=== PATIENT | male | born 1965 | race Caucasian/White ===

== ENCOUNTER 2017-01-26 10:01 | Day surgery (SDC) | payer BC ==
[~2017-01-26 10:01] MED LIST: Buffered Lidocaine 0.9% SYRIN* 5 ML/SYR SYRINGE INTRADERM ONE
[2017-01-26] MEDS ORDERED: ceFAZolin 2 GM PREMIX(*) 2 GM/50 ML BAG IVPB ONE (10:08)
[2017-01-26] MEDS ORDERED: Buffered Lidocaine 0.9% SYRIN* 5 ML/SYR SYRINGE ONE (10:09)
[2017-01-26] MEDS ORDERED: fentaNYL* 50 MCG/ML 2 ML VIAL (100 MCG VIAL) ONE (10:40)
[2017-01-26] MEDS ORDERED: Midazolam* 1 MG/ML 2 ML VIAL (2 MG) ONE (10:41)
[2017-01-26] MEDS ORDERED: Bupivacaine 0.25% EPI 200,000* 30 ML SDV ONE (10:42)
[2017-01-26] MEDS ORDERED: Bupivacaine 0.25% SDV* 30 ML ONE (10:42)
[2017-01-26] MEDS ORDERED: Dexamethasone IV* 4 MG/ML 1 ML (4 MG) ONE (10:59)
[2017-01-26] MEDS ORDERED: Ketorolac INJ* 30 MG/ML 1 ML VIAL ONE (11:30)
[2017-01-26] MEDS ORDERED: methylPREDNISolone ACETATE 80* 80 MG/ML 1 ML VIAL ONE (11:36)
[2017-01-26] MEDS ORDERED: Ondansetron INJ* 2 MG/ML VIAL ONE (11:37)
[2017-01-26] MEDS ORDERED: fentaNYL* 50 MCG/ML 2 ML VIAL (100 MCG VIAL) IV PRN (11:50)
[2017-01-26] MEDS ORDERED: HYDROcodone/ACETAMIN 5-325 MG* 1 TAB PO PRN (11:50)
[2017-01-26] MEDS ORDERED: oxyCODONE TAB* 5 MG TAB PO PRN (11:50)
[2017-01-26] MEDS ORDERED: HYDROmorphone* 1 MG/ML 1 ML SYR IV PRN (11:50)
[2017-01-26] MEDS ORDERED: Ondansetron INJ* 2 MG/ML VIAL IV PRN (11:50)
[2017-01-26] MEDS ORDERED: DiMENhydriNATE IV* 50 MG/ML VIAL IV PUSH PRN (11:50)
[2017-01-26] MEDS ORDERED: oxyCODONE/Acetamin 5/325 MG* TAB ONE (12:03)
[2017-01-26 12:23] VITALS: BP 116/71
--- NOTE | 2017-01-27 05:19 | OP ---
DATE OF OPERATION: 01/26/17 - [facility] DATE OF : 61 SURGEON: Lissa Grier MD ENVIRONMENTAL MONITORING TECHNICIAN: None. ANESTHESIOLOGIST: Elder Denton MD ANESTHESIA: General. PRE-OP DIAGNOSIS: Right knee ankylosis. POST-OP DIAGNOSES: Right knee ankylosis and medial meniscus tear. OPERATIVE PROCEDURE: Right knee arthroscopy with manipulation under anesthesia , lysis of adhesions which was medially along the scar as well as partial medial meniscectomy. INDICATIONS: Anders Ayala is a 51-year-old male, who underwent previous right knee medial femoral condyle BioCartilage. He was doing well, but he was having a lot of anteromedially based pain and difficulty with stairs. It was thought that the medial scar was causing this pain. After an extensive discussion and failing conservative management, he has elected to proceed with arthroscopy with lysis of adhesions. Risks and benefits were discussed at length and included but are not limited to bleeding, infection, damage to nerves , vessels, surrounding structures, wound nonhealing, persistent pain, need for further surgery, risk of anesthesia, risk of DVT, scarring, stiffness, persistent pain, incomplete relief of symptoms, risk of anesthesia. He did have a previous DVT after his previous surgery and we will place him on Lovenox postoperatively to prevent DVT after this surgery. COMPLICATIONS: None. ESTIMATED BLOOD LOSS: Minimal. DESCRIPTION OF PROCEDURE: The patient was greeted in the preoperative area by the attending surgeon. Correct extremity was marked and consent was confirmed. The patient was then brought back to the operating suite, where he was placed in supine position on the operating table, then underwent general anesthesia with LMA intubation, after which a nonsterile tourniquet was placed high on the right leg. The lateral post was positioned. After a miniature surgical pause, the right knee was intra-articularly injected with 0.25% Marcaine with epi. The right leg was then prepped and draped in the usual sterile fashion beginning with chlorhexidine soap and alcohol wipe and a final prep with ChloraPrep. After appropriate surgical pause, indicating side, site, procedure, administration of antibiotics, the anterolateral portal was made sharply with an 11-blade. Scope was introduced into the joint. There was abundant scar anteriorly, particular medially. An anteromedial portal was then made using a needle for localization. The electrocautery device was used to remove the abundant scar that was present all around the anteromedial aspect of the patella. As the scar was slowly released, there was evidence of soft tissue that were able to soften, allow better mobilization of the patella. This also helped remove a lot of the new plica that was forming from the excessive scar tissue. Electrocautery was also used to maintain hemostasis at all times. The ACL and PCL were intact. The patella had grade 0 to 1 changes. The trochlea had grade 0 to 1 changes, except for a central ridge, which had grade 2 to 3 changes with no unstable flaps. The medial and lateral gutters were examined and found to be without any loose debris. The scope was brought into the medial compartment and medial femoral condyle had the previous BioCartilage lesion, which had healed over quite well and had appeared to be well- attached to the medial meniscus; however, had appeared to be tear that had an unstable flap, which was debrided back using the antonio and biters. The tibial plateau had grade 1 changes. The lateral compartment was examined and had grade 0 to 1 changes in the femur and the tibia. The lateral meniscus was intact. Once the partial meniscectomy and lysis of adhesions were done, all fluid and debris were removed from the joint. The knee was then intra-articularly injected with 0.25% Marcaine with 80 mg of Depo-Medrol. The portals were closed with nylon. Sterile dressings were applied. He was awoken from anesthesia and transferred to the PACU in stable condition. POSTOPERATIVE PLAN: He will be weightbearing as tolerated. He will be discharged on pain medications as well as Lovenox. DVT prophylaxis was considered. He did have a previous DVT with this and that is why we will plan to send him on Lovenox. I will see the patient back in 10 to 14 days. [id number]/[facility] #: [id number] AI
== END 2017-01-26 12:32 | disposition home or self-care (01) ==
LOC: OREAST 10:01
PROVIDERS: ATTEND Orthopaedic Surgery
DX: M24.661 Ankylosis, right knee (principal); M23.203 Derangement of unspecified medial meniscus due to old tear or injury, right knee; Z86.718 Personal history of other venous thrombosis and embolism
CPT/HCPCS: A9270-GY; J0690; J1040; J1100; J1885; J2250; J2405; J3010

== ENCOUNTER 2017-02-10 15:03 | Inpatient (IN) | payer BC ==
[~2017-02-10 15:03] MED LIST changes: +Famotidine IV* 10 MG/ML 2 ML (20 mg) IV ONE
[2017-02-10] MEDS ORDERED: Famotidine IV* 10 MG/ML 2 ML (20 mg) ONE (15:46)
[2017-02-10] MEDS ORDERED: oxyCODONE/Acetamin 5/325 MG* TAB PO PRN ×2 (15:48→19:32)
[2017-02-10] MEDS ORDERED: oxyCODONE TAB* 5 MG TAB PO PRN (15:48)
[2017-02-10] MEDS ORDERED: Acetaminophen TAB* 325 MG PO PRN (15:48)
[2017-02-10] MEDS ORDERED: Ondansetron TAB* 4 MG PO PRN (15:48)
[2017-02-10] MEDS ORDERED: Morphine INJ* 2 MG/ML 1 ML SYRINGE IV PRN (15:48)
[2017-02-10] MEDS ORDERED: diPHENhydraMINE IV* 50 MG/ML 1 ml VIAL (BENADRYL) IV PRN (15:48)
[2017-02-10] MEDS ORDERED: Vancomycin(*) 1,000 MG in NS 0.9% 250 ML* 250 ML IVPB ONE (17:00)
[2017-02-10 17:04] LABS: Hematocrit 42 % (42-52); Hemoglobin 14.3 g/dl (14.0-18.0); Mean Corpuscular HGB Conc 34 g/dl (31-36); Mean Corpuscular Hemoglobin 30 pg (27-31); Mean Corpuscular Volume 89 fL (80-94); Mean Platelet Volume 8 um3 (7.4-10.4); Red Blood Count 4.71 10^6/ul (4.0-5.4); Red Cell Distribution Width 13 % (10.5-15); White Blood Count 6.3 10^3/ul (3.5-10.8)
--- NOTE | 2017-02-10 17:33 | HP ---
HISTORY AND PHYSICAL: DATE OF ADMISSION: 02/10/17 ATTENDING PHYSICIAN: Lissa Grier MD. CHIEF COMPLAINT: Right knee pain, status post recent knee arthroscopy. HISTORY OF PRESENT ILLNESS: Andres Ayala is a 51-year-old male who underwent a recent right knee arthroscopic lysis of adhesion on 01/26/17. He was doing well and was seen at a postop visit on 02/06/17, which was 1 week and 4 days postop. He was doing okay. He did notice that he had an occasional ache. He stated that the medial portal was somewhat tender for him, but he did not notice any kind of swelling, no drainage, but on Thursday, he noticed some drainage. Since that time, he has had an increased drainage coming out of the portal. Even though most of the portal has healed, there is a small pinhole. He has not had any specific fevers or chills. He did notice increased pain with weightbearing yesterday. He did not go to the ER. He came to the office today, at which point I aspirated him because there was concern based on the fluid that was coming out. He denies any fevers or chills. There is no erythema or warmth, but he does have some increased knee pain. He is having difficulty going up stairs but not down stairs. PAST MEDICAL HISTORY: Significant for DVT x1. PAST SURGICAL HISTORY: Appendectomy, surgery on his right foot x2 in 2000 and 2004, right knee arthroscopy with Dr. White in 2014 for a partial meniscectomy, then a recent scope in May 2016 where we did an open BioCartilage with arthroscopic portion, and then the recent arthroscopic lysis of adhesion approximately 2 weeks ago. MEDICATIONS: I placed him on Bactrim today, which he has not started. ALLERGIES: None. FAMILY HISTORY: Significant for high blood pressure. SOCIAL HISTORY: 51 years old. Lives with his spouse. He is a teacher. He denies tobacco or alcohol. He denies any illicit drugs. REVIEW OF SYSTEMS: A 14-point review of systems is significant only for the above complaint, and difficulty with weightbearing, some loss of motion. No fevers or chills. Otherwise, the remainder of the systems are negative. PHYSICAL EXAMINATION GENERAL: He is in no acute distress. He is well developed, well nourished. He is alert and oriented x3. He has pleasant mood, normal affect. HEENT: EOMI. CHEST: Clear to auscultation. HEART: Regular rate and rhythm. ABDOMEN: Soft and nontender. EXTREMITIES: Examination of the right knee demonstrates the medial portal has a small pinhole. There is a yellowish fluid draining. There is a mild effusion in the knee itself. The lateral portal is fully healed. There is no erythema or warmth. He is not specifically tender to palpation, not specifically tender about either joint line. Range of motion is from 10 degrees to about 100 degrees. His calves are soft and nontender. He is sensate to light touch grossly distally with 2+ DP pulse. ASSESSMENT AND PLAN: I aspirated his knee in the clinic and I sent it for stat Gram stain and culture. The Gram stain has come back with 51,000 white blood cells. He has had 2 previous surgeries, and although his knee is not red , he does have pain with weightbearing and I am concerned he has a septic joint. We will plan for right knee arthroscopy and lavage with intraopcultures , and he will likely be admitted for a day or two postoperatively to find out what organism is growing. We consulted Infectious Diseases and I will continue to monitor the patient. The gram stain grew out MRSA. [id number]/[facility] #: [id number] AI
[2017-02-10] MEDS ORDERED: Bupivacaine 0.25% EPI 200,000* 30 ML SDV ONE (18:58)
[2017-02-10] MEDS ORDERED: Vancomycin(*) 0 MG in NS 0.9% 250 ML* 250 ML IVPB SCH (19:00)
[2017-02-10] MEDS ORDERED: fentaNYL* 50 MCG/ML 2 ML VIAL (100 MCG VIAL) ONE (19:01)
[2017-02-10] MEDS ORDERED: Lidocaine 2% PF * 5 ML VIAL ONE (19:01)
[2017-02-10] MEDS ORDERED: Propofol* 10 MG/ML 20 ML BTL IV PUSH ONE (19:01)
[2017-02-10 19:02] LABS: Erythrocyte Sed Rate 13 mm/Hr (0-20)
[2017-02-10] MEDS ORDERED: Ketorolac INJ* 30 MG/ML 1 ML VIAL ONE (19:11)
[2017-02-10] MEDS ORDERED: Ondansetron INJ* 2 MG/ML VIAL ONE (19:18)
[2017-02-10] MEDS ORDERED: HYDROcodone/ACETAMIN 5-325 MG* 1 TAB PO PRN (19:32)
[2017-02-10] MEDS ORDERED: PROCHLORPERAZINE INJ 5 MG/ML 2 ML VIAL IV PRN (19:32)
[2017-02-10] MEDS ORDERED: fentaNYL* 50 MCG/ML 2 ML VIAL (100 MCG VIAL) IV PRN (19:32)
[2017-02-11] MEDS: Docusate CAP* 100 MG PO SCH ×3 (01:44→20:28)
[2017-02-11 04:12] LABS: Hematocrit 40 % (42-52); Hemoglobin 13.6 g/dl (14.0-18.0)
[2017-02-11 04:24] LABS: BUN/Creatinine Ratio 13.5 (8-20); Calcium 8.7 mg/dL (8.6-10.3); EGFR Non-African American 89.4 (>60); Potassium 3.7 mmol/L (3.5-5.0)
[2017-02-11] MEDS ORDERED: Vancomycin per Pharmacy* NOTE FOLLOW UP PRN (04:48)
[2017-02-11] MEDS: Vancomycin(*) 1,250 MG in NS 0.9% 250 ML* 250 ML IVPB SCH ×3 (05:00→21:24)
--- NOTE | 2017-02-11 09:28 | OP ---
CC: PCP OPERATIVE REPORT: DATE OF OPERATION: 02/10/17 DATE OF : 61 SURGEON: Lissa Grier MD EMERGENCY TELECOMMUNICATIONS DISPATCHER: None available. ANESTHESIOLOGIST: Espinoza Han MD ANESTHESIA: General. PRE-OP DIAGNOSIS: Right knee septic arthritis. POST-OP DIAGNOSIS: Right knee septic arthritis. OPERATIVE PROCEDURE: Right knee arthroscopy with debridement and lavage with 12 L of saline. INDICATIONS: Andres Ayala is a 51-year-old gentleman who underwent recent lysis of adhesions an d a debridement approximately 2 weeks and 1 day ago. He was doing well at his postop visit and then over the weekend, he started to notice drainage through the medial wound. He subsequently started to have more drainage and started to have pain that began yesterday. He had progressive pain with w eightbearing, but he had an appointment scheduled to see me in the office today. At that visit, irish van was concern for infection. His knee was aspirated, which came back as positive for MRSA as well a s 51,000 white blood cells on the aspiration. After extensive discussion of risks and benefits of op erative versus nonoperative treatment, he has elected to proceed with surgery. This was done emerge ntly. He did labs. CBC, ESR, CRP were drawn prior to surgery and now because the surgery was being delayed due to other cases, vancomycin was started prior to going into surgery; therefore, no aspir ation was obtained at the time of surgery. Risks include but are not limited to bleeding, infection , damage to nerves, vessels, surrounding structures, the wound not healing, persistent pain, need fo r further surgery, risks of anesthesia, scarring, stiffness, persistent pain, need for further surge ry. COMPLICATIONS: None. ESTIMATED BLOOD LOSS: Minimal. DESCRIPTION OF PROCEDURE: The patient was greeted in the preoperative area by the attending surgeon . Correct extremity was marked and consent was confirmed. The patient was brought back to the oper ating suite where he was placed in supine position on the operating table. He then underwent genera l anesthesia with LMA intubation, after which a nonsterile tourniquet was placed high on the proxima l thigh. The lateral post was positioned. The dressings were removed. The right leg was then prep ped and draped in the usual sterile fashion beginning with a pre- scrub with chlorhexidine soap, scr ub, and alcohol wipe, and then a final prep with Betadine scrub and paint. After appropriate surgical pause indicating side, site, procedure, administration of antibiotics, th e anterolateral portal was made sharply via an 11 blade. The scope was introduced into the joint. The previous medial portal was opened as well. The scope was brought into the joint. The joint was examined. There was no obvious large phlegmons, but there was some cloudy fluid. The shaver was b rought into the medial portal and a small debridement was done. Any suspicious looking tissue was d ebrided, but there was no obvious biofilms or anything present. The scope and the shaver were taken throughout all portions including the medial and lateral gutters, the suprapatellar pouch, and thor oughly lavaged. The patellofemoral joint had no changes to the cartilage. The medial femoral condy le still had the previous patch that was still present. There was no evidence of it failing. The m eniscus did not have any obvious changes or wear. The ACL and PCL were intact. The lateral compart ment was unchanged as well from the previous exam 2 weeks ago. The first 6 L were passed through th e knee and then a curette was used to debride the medial compartment, any purulent tissue or anythin g was used was done. This was then thoroughly irrigated. Both portals were thoroughly irrigated an d then the remaining 6 L were passed through the knee joint, again with care to try to access every aspect of the joint. All fluid and debris were removed from the knee. The portals were closed with 3-0 nylon in interrupted fashion. The portals were injected with 0.25% Marcaine plain, portals onl y. Sterile dressings were applied. The patient was awoken from anesthesia and transferred to the P ACU in stable condition. POSTOPERATIVE PLAN: He will be weightbearing as tolerated. Range of motion as tolerated. He will be placed on IV vancomycin. Infectious Diseases was consulted to see him in the morning. He will l ikely be discharged with a PICC line as he does have MRSA based on the aspirate. I will continue to follow the patient in the hospital and potentially if he has increased symptoms or pain, he may nee d another washout in about 48 to 72 hours. [id number]/[facility] #: [id number]
--- NOTE | 2017-02-11 11:16 | PN ---
Progress Note - Progress Note SOAP: Subjective: POD#1 from R knee arthroscopic I and D for septic joint. Feeling well. No pain. No fevers or chills. Walking laps around the floor. Objective: Temp Pulse Resp BP Pulse Ox 98.5 F 58 16 112/67 97 02/11/ 08:07 02/11/17 08:07 02/11/17 08:07 02/11/17 08:07 02/11/17 08:[address]. Right knee able to flex/ext from 5-110 degrees ( hindered by dressings). Calf soft, nontender. SILT grossly distally. 2+ PT pulse Laboratory Results - last 24 hr 02/10/02/11/02/11/17 16:45 04:00 04:00 WBC 6.3 RBC 4.71 Hgb 14.3 13.6 L Hct 42 40 L MCV 89 MCH 30 MCHC 34 RDW 13 Plt Count 189 MPV 8 Neut % (Auto) 64.8 Lymph % (Auto) 25.3 [place] % (Auto) 7.7 Eos % (Auto) 1.7 Baso % (Auto) 0.5 Absolute Neuts (auto) 4.1 Absolute Lymphs (auto) 1.6 Absolute Monos (auto) 0.5 Absolute Eos (auto) 0.1 Absolute Basos (auto) 0 Absolute Nucleated RBC 0 Nucleated RBC % 0 ESR 13 Sodium 138 Potassium 3.7 Chloride 106 Carbon Dioxide 27 Anion Gap 5 BUN 12 Creatinine 0.89 Est GFR ( Amer) 115.0 Est GFR (Non-Af Amer) 89.4 BUN/Creatinine Ratio 13.5 Glucose 86 Calcium 8.7 Assessment: POD#1 from I and D for right knee septic joint Plan: WBAT dressing change tomorrow. if increased pain, swelling, erythema then would consider repeat scope will continue to follow labs Dr Monroy consulted Likely picc line with IV vanco. will discharge potentially tomorrow or day after. dvt ppx
--- NOTE | 2017-02-11 12:38 | CONS ---
CONSULTATION REPORT: DATE OF CONSULT: 02/11/17 REQUESTING PHYSICIAN: Dr. Grier. CONSULTING SERVICE: Infectious Disease. REASON FOR CONSULT: Right knee infection. IMPRESSION: 1. Septic right knee; status post arthroscopic incision, debridement, and aspiration shows 50,000 white cells with Gram stain showed 4+ pus, no organisms , PCR was Staphylococcus aureus and methicillin-resistant Staphylococcus aureus positive. Nothing growing on the culture yet. 2. Status post right knee arthroscopy and partial medial meniscectomy on . RECOMMENDATION: Continue vancomycin, goal trough 15 to 20, this is likely a MRSA. There are an occasional false positive on the MRSA part of it, so it would make sense to wait for the culture and sensitivity to ensure it is MRSA. Assuming he is ready to go before the information is available, we can follow up with the cultures as an outpatient, change the antibiotics as needed. However, through a PICC line, he will have 4 weeks of IV antibiotics with repeat CBC, CMP, and CRP. HISTORY OF PRESENT ILLNESS: A 51-year-old male who had a right knee arthroscopy on 01/26/17 was doing well initially and then started to develop some drainage, which was yellowish from one of the ports. He developed knee stiffness and pain. He had no fevers or chills. He saw Dr. Grier, who noted an effusion. She aspirated his knee yesterday. There were 51,000 white blood cells, 80% neutrophils, no crystals, Gram stain as noted above. He was admitted last night, started on vancomycin, he had arthroscopic incision and debridement. I discussed the case with her this morning. PAST MEDICAL HISTORY: 1. Status post right knee arthroscopy in January 2017. 2. Status post appendectomy. 3. Status post right foot surgery in 2000 and 2004. 4. Status post right knee arthroscopy in 2014. 5. DVT. MEDICATIONS: 1. Tylenol. 2. Enoxaparin. 3. Vancomycin 1250 mg IV every 8 hours. ALLERGIES: No known drug allergies. FAMILY HISTORY: Hypertension. SOCIAL HISTORY: He lives in [place]; he is a mathematics teacher. REVIEW OF SYSTEMS: All negative to full review of systems except as noted above. PHYSICAL EXAMINATION: Vital Signs: Temperature is 37, heart rate 58, respiratory rate 16, blood pressure 112/67, O2 sat 97% on room air. In general , he is awake, not distressed. Neurologic: He is oriented x3. Follows all commands. HEENT: There is no conjunctival hemorrhage. Oropharynx without lesions. Neck is supple without nuchal rigidity. Heart is regular rate and rhythm without murmurs, rubs, or gallops. Lungs are clear to auscultation bilaterally. Abdomen is soft, nontender, nondistended. Bowel sounds present. Skin: There is no rash or splinter hemorrhages. Musculoskeletal: No joint synovitis. His right knee is wrapped with the cryo device. He does have decreased flexion and extension. Sensation is intact to light touch in right lower leg. LABORATORY DATA: White blood cell count is 6, hemoglobin 14, platelets 189. Creatinine is 0.9. Please see impressions and recommendations as outlined above, which I have discussed with Dr. Grier. Thanks for asking me to see Mr. Ayala in consultation. [id number]/[facility] #: [id number] MTDD
[2017-02-11] MEDS: Enoxaparin(*) 40 MG/0.4 ML SYR SUBCUT SCH (16:41)
[2017-02-11] MEDS ORDERED: Vancomycin Trough Check NOTE FOLLOW UP ONE (21:00)
[2017-02-12] MEDS: Vancomycin(*) 1,250 MG in NS 0.9% 250 ML* 250 ML IVPB SCH ×3 (04:59→21:34)
[2017-02-12 06:33] LABS: Hematocrit 40 % (42-52); Hemoglobin 13.7 g/dl (14.0-18.0)
[2017-02-12] MEDS: Docusate CAP* 100 MG PO SCH ×2 (08:29→21:35)
--- NOTE | 2017-02-12 09:57 | PN ---
Progress Note - Progress Note Note: Patient seen at bedside, ready to go outside for fresh air via WC. Reported by patient that Dr. Grier was in to see him this am and has made him NPO for repeat washout of the Right knee this afternoon. Patient in agreement to proceed.
--- NOTE | 2017-02-12 11:10 | PN ---
Progress Note - Progress Note SOAP: Subjective: DOS: 02/12/17 CC: knee infection HPI: 51 year old man with right knee arthroscopy now septic knee. Decreased motion today, Dr Grier plans for another I&D tonight. No fever, rash, or diarrhea. Objective: [] Vital Signs Temp 36.6 C 02/12/17 07:16 Pulse 66 02/12/17 07:16 Resp 16 02/12/17 07:41 BP 111/69 02/12/17 07:16 Pulse Ox 98 02/12/17 07:16 Intake & Output 02/11/17 02/12/17 02/12/17 18:59 06:59 18:59 Intake Total 1863 1755 675 Output Total 1200 400 Balance 663 1355 675 Intake: IV Fluids 140 LR 140 IVPB 1143 535 ABX - VANCOMYCIN 561 LR 582 535 Oral 720 1755 Output: Urine 1200 400 Other: Estimated Void Medium # Bowel Movements 0 # Voids 3 Gen:Awake, no distress HEENT:PERRL, MMM Neck:supple Heart:RRR no murmur Lungs:CTA BL Abd:+BS NTND soft Skin: no rash MSK: no spine tenderness, right knee edema Laboratory Results - last 24 hr 02/11/17 02/12/17 02/12/17 20:25 06:12 06:12 Hgb 13.7 L Hct 40 L Vancomycin Trough 10.2 33.3 H* Assessment: 1. MRSA septic arthritis, right knee; PCR positive, culture negative. Plan: 1. vancomycin 1250 mg IV Q8hrs for 4-6 weeks. Today's trough is not a true trough, another one scheduled for tomorrow morning. Weekly CBC, CMP, CRP, vancomycin trough 35 minutes floor time >50% face to face counseling regarding antibiotic treatment at home, all questions answered.
--- NOTE | 2017-02-12 12:08 | PN ---
Progress Note - Progress Note SOAP: Subjective:DATE OF SERVICE 02/12/17 POD#2 from scope with increased pain and loss of motion. Vanco level at 33. Denies numbness and tingling. More pain with weight bearing Objective: Temp Pulse Resp BP Pulse Ox 97.8 F 66 16 111/69 98 02/12/17 07:16 02/12/17 07:16 02/12/17 07:41 02/12/17 07:16 02/12/17 07:16 NAD. right knee dressing taken down. incisions intact. mild effusion. + warmth and erythema. SILT grossly distally. brisk cap refill. calf soft. ROM 0-30 Assessment: POD#2 with worsening pain Plan: NPO to OR this afternoon for repeat washout WBAT
--- NOTE | 2017-02-12 13:37 | RAD ---
INDICATION: PICC placement. COMPARISON: Comparison is made with a prior chest x-ray study from September 05, 2015. TECHNIQUE: A portable view of the chest was obtained. FINDINGS: Cardiac and mediastinal contours appear to be within normal limits. There is a PICC entering on the right side. The catheter tip projects in the right paratracheal region overlying the superior vena cava. The lungs are clear. No pleural effusion is seen. IMPRESSION: STATUS POST PLACEMENT, NO EVIDENCE FOR ACUTE FINDING.
[2017-02-12] MEDS: Enoxaparin(*) 40 MG/0.4 ML SYR SUBCUT SCH (15:10)
[2017-02-12] MEDS ORDERED: Bupivacaine 0.25% EPI 200,000* 30 ML SDV ONE (16:03)
[2017-02-12] MEDS ORDERED: Midazolam* 1 MG/ML 2 ML VIAL (2 MG) ONE (16:07)
[2017-02-12] MEDS ORDERED: fentaNYL* 50 MCG/ML 2 ML VIAL (100 MCG VIAL) ONE (16:07)
[2017-02-12] MEDS ORDERED: Dexamethasone IV* 4 MG/ML 1 ML (4 MG) ONE (16:25)
[2017-02-12] MEDS ORDERED: Ondansetron INJ* 2 MG/ML VIAL ONE (16:25)
[2017-02-12] MEDS ORDERED: DiMENhydriNATE IV* 50 MG/ML VIAL IV PUSH PRN (16:38)
[2017-02-12] MEDS ORDERED: HYDROmorphone* 1 MG/ML 1 ML SYR IV PRN (16:38)
[2017-02-12] MEDS ORDERED: fentaNYL* 50 MCG/ML 2 ML VIAL (100 MCG VIAL) IV PRN (16:38)
[2017-02-12] MEDS ORDERED: Ketorolac INJ* 30 MG/ML 1 ML VIAL ONE (16:56)
[2017-02-12] MEDS ORDERED: Propofol* 10 MG/ML 20 ML BTL IV PUSH ONE (16:56)
[2017-02-12] MEDS: oxyCODONE/Acetamin 5/325 MG* TAB PO PRN (21:35)
[2017-02-13] MEDS: oxyCODONE/Acetamin 5/325 MG* TAB PO PRN ×2 (03:30→08:06)
[2017-02-13] MEDS ORDERED: Vancomycin Trough Check NOTE FOLLOW UP ONE (04:30)
[2017-02-13 05:26] LABS: Hematocrit 41 % (42-52); Hemoglobin 13.7 g/dl (14.0-18.0)
[2017-02-13] MEDS: Vancomycin(*) 1,250 MG in NS 0.9% 250 ML* 250 ML IVPB SCH ×2 (06:22→12:15)
[2017-02-13] MEDS ORDERED: Magnesium Hydroxide LIQ* 30 ML UDC PO PRN (07:34)
[2017-02-13] MEDS ORDERED: Bisacodyl SUPP* 10 MG SUPP PR PRN (07:35)
[2017-02-13] MEDS: Docusate CAP* 100 MG PO SCH (08:06)
--- NOTE | 2017-02-13 09:04 | PN ---
Progress Note - Progress Note Date of Service: 02/13/17 SOAP: Subjective: DOS: 02/13/17 CC: knee infection HPI: 51 year old man with right knee arthroscopy now septic knee. Had another I &D last night. Feels well. No fever, rash or diarrhea. Had RUE PICC placed. Objective: [] Vital Signs Temp 36.4 C 02/13/17 07:57 Pulse 56 02/13/17 07:57 Resp 16 02/13/17 08:06 BP 119/76 02/13/17 07:57 Pulse Ox 98 02/13/17 07:57 Intake & Output 02/12/17 02/13/17 02/13/17 18:59 06:59 18:59 Intake Total 675 3067 Output Total 250 Balance 425 3067 Intake: IV Fluids 140 577 LR 140 577 IVPB 535 270 ABX - VANCOMYCIN 270 LR 535 Oral 2220 Output: Urine 250 Other: Estimated Void Medium # Voids 3 Gen:Awake, no distress HEENT:PERRL, MMM Neck:supple Heart:RRR no murmur Lungs:CTA BL Abd:+BS NTND soft Skin: no rash MSK: no spine tenderness, right knee edema Laboratory Results - last 24 hr 02/13/17 02/13/17 05:00 05:00 Hgb 13.7 L Hct 41 L Vancomycin Trough 12.8 Assessment: 1. MRSA septic arthritis, right knee; PCR positive, culture negative. 2. hx DVT Plan: 1. vancomycin 1250 mg IV Q8hrs for 4-6 weeks. Weekly CBC, CMP, CRP, vanco Tr ordered. Follow up with me next week. 25 minutes floor time >50% face to face counseling regarding antibiotic treatment at home, all questions answered.
--- NOTE | 2017-02-13 11:50 | PN ---
Progress Note - Progress Note Date of Service: 02/13/17 SOAP: Subjective: 51 y/o male s/p washout, I&D of R knee d/t MRSA sepsis. Patient states pain controlled at rest, increased with movement. PICC placed, working well, Objective: General- Well appearing, NAD MSK- R LE- Surgical dressing intact, neg homans b/l, + PF/ DF. no edema noted, minimal pain with palpation R knee. Laboratory Results - last 24 hr 02/13/17 02/13/17 05:00 05:00 Hgb 13.7 L Hct 41 L Vancomycin Trough 12.8 Vital Signs Temp 97.5 F 02/13/17 07:57 Pulse 56 02/13/17 07:57 Resp 16 02/13/17 10:04 BP 119/76 02/13/17 07:57 Pulse Ox 98 02/13/17 07:57 Intake & Output 02/12/17 02/13/17 02/13/17 18:59 06:59 18:59 Intake Total 675 3067 Output Total 250 Balance 425 3067 Intake: IV Fluids 140 577 LR 140 577 IVPB 535 270 ABX - VANCOMYCIN 270 LR 535 Oral 2220 Output: Urine 250 Other: Estimated Void Medium # Voids 3 Assessment: 51 y/o male s/p washout, I&D of R knee d/t MRSA sepsis. Plan: - D/c to home this afternoon. VNS set up to do PICC/ ABX teaching. - COnitnue PT/ OT, encouraged ROM as tolerated. - Percocet for pain - DVT heparin, ASA 325mg daily at D/C - FOllow up with Dr. Madsen after D/C within 10 days Active Medications Generic Name Dose Route Start Last Admin Trade Name Freq PRN Reason Stop Dose Admin Acetaminophen 650 mg 02/10/17 15:48 02/11/17 20:28 Tylenol Tab* PO 650 mg Q4H PRN Administration PAIN OR TEMPERATURE Bisacodyl 10 mg 02/13/17 07:35 Dulcolax Supp* UT DAILY PRN CONSTIPATION Diphenhydramine HCl 12.5 mg 02/10/17 15:48 Benadryl Iv* IV Q6H PRN PRURITIS Docusate Sodium 100 mg 02/10/17 21:00 02/13/17 08:06 Colace Cap* PO 100 mg BID RENUKA Administration Enoxaparin Sodium 40 mg 02/11/17 16:00 02/12/17 15:10 Lovenox(*) SUBCUT Not Given Q24H RENUKA Heparin Sodium (Porcine) 1 ml 02/12/17 18:00 02/13/17 06:19 Heparin Flush Picc/Ml/Cvc(*) FLUSH Not Given 0600,1800 RENUKA Lactated Ringer's 1,000 mls @ 100 mls/hr 02/10/17 19:00 02/13/17 06:57 Lactated Ringers 1000 Ml Bag* IV 100 mls/hr PER RATE RENUKA Administration Vancomycin HCl 1,250 mg/ 250 mls @ 166.667 mls/hr 02/11/17 05:00 02/13/17 06: 22 Sodium Chloride IVPB 166.667 mls/hr Q8H RENUKA Administration Magnesium Hydroxide 30 ml 02/13/17 07:34 02/13/17 08:05 Milk Of Magnesia Liq* PO 30 ml Q6H PRN Administration CONSTIPATION Morphine Sulfate 2 mg 02/10/17 15:48 02/12/17 13:28 Morphine Inj (Syringe)* IV 2 mg Q2H PRN Administration PAIN Ondansetron HCl 4 mg 02/10/17 15:48 Zofran Tab* PO Q6H PRN NAUSEA Oxycodone HCl 10 mg 02/10/17 15:48 Roxycodone Tab* PO Q4H PRN SEVERE PAIN Oxycodone/Acetaminophen 1 tab 02/10/17 15:48 02/13/17 08:06 Percocet 5/325 Tab* PO 1 tab Q3H PRN Administration PAIN - MODERATE Oxycodone/Acetaminophen 2 tab 02/10/17 15:48 Percocet 5/325 Tab* PO Q3H PRN PAIN - MODERATE Pharmacy Consult 1 note 02/11/17 04:48 Vancomycin Per Pharmacy* FOLLOW UP . PRN PER PROTOCOL
[2017-02-13 13:23] VITALS: BP 130/78
--- NOTE | 2017-02-13 14:04 | PN ---
Progress Note - Progress Note Date of Service: 02/13/17 SOAP: Subjective: POD#1 from repeat washout. doing better. pain controlled. potential d/c Objective: Temp Pulse Resp BP Pulse Ox 97.9 F 70 16 130/78 100 02/13/17 12:20 02/13/17 12:20 02/13/17 12:20 02/13/17 12:20 02/13/17 12:20 NAD. right knee dressing in place. ROM 10-90. SILT grossly distally. brisk cap refill. calf is soft and nontender. Laboratory Results - last 24 hr 02/13/17 02/13/17 05:00 05:00 Hgb 13.7 L Hct 41 L Vancomycin Trough 12.8 Assessment: POD#1 from repeat washout Plan: doing well. will give IV toradol and discharge on oral toradol for 5 days cont pain management. f/u next week. ROM as tolerated.
[2017-02-13] MEDS ORDERED: Ketorolac INJ* 15 MG/ML 1 ML VIAL IV PUSH PRN (14:07)
--- NOTE | 2017-02-14 14:50 | OP ---
CC: PCP OPERATIVE REPORT: DATE OF OPERATION: 02/12/17 DATE OF : 61 SURGEON: Lissa Grier MD LOAD DISPATCHER LOCAL: JASMYN Monae An human resources office assistant was needed for the entirety of the case to help with positioning, retraction, and was u tilized throughout all portions of this case. ANESTHESIOLOGIST: Dr. Hayes. ANESTHESIA: General. PRE-OP DIAGNOSIS: Right knee septic arthritis. POST-OP DIAGNOSIS: Right knee septic arthritis. OPERATIVE PROCEDURE: Right knee arthroscopy, irrigation and debridement. INDICATIONS: Andres Ayala is a 51-year-old male, who had a recent arthroscopic procedure and ap proximately 2 weeks and 3 days later, he became infected. He had a previous washout 2 days ago. He was having increased pain and redness and warmth. He started to feel more uncomfortable and was josselin ble to weight bear, therefore a repeat washout was planned for later in the day. After extensive di scussion of the risks and benefits of the surgery versus nonoperative treatment, he has elected to p roceed with surgery. COMPLICATIONS: None. ESTIMATED BLOOD LOSS: 30 cc. IMPLANTS: None. DISPOSITION: Stable. DESCRIPTION OF PROCEDURE: The patient was greeted in the preoperative area by the attending surgeon . Correct extremity was marked and consent was confirmed. The patient was then brought back to the operating suite where he was placed in supine position on the operating table. He then underwent g eneral anesthesia with endotracheal intubation, after which a nonsterile tourniquet was placed high on the proximal leg. The lateral post was positioned. The right leg was then prepped and draped in the usual sterile fashion beginning with a pre-scrub with chlorhexidine soap, scrub, and alcohol wi pe. After appropriate surgical pause indicating side, site, procedure, administration of antibiotics, th e previous sutures were cut and the knife was used to reopen the portal. The scope was then brought back into the joint. The joint was examined. There was abundant hyperemia in the tissue. There wa s blood, but no obvious pus. The scope was then used to thoroughly irrigate the joint throughout the medial and lateral gutter, the suprapatellar pouch, the medial and lateral femoral condyle. The sha dali was brought into the anteromedial portal and used to help cause turbulent flow. The electrocaut elaine device was used. After the first 6 L were infused, the electrocautery device was used to cauter ize and preserve hemostasis. A 5.5 more liters were pumped into the intra-articular space and then f inally a curette was used to debride both portal sites and then both were thoroughly irrigated. The n both portals were closed with interrupted sutures of nylon sutures. Sterile dressings were applie d. He was awoken from anesthesia and transferred to the PACU in stable condition. POSTOPERATIVE PLAN: He will be weightbearing as tolerated. He will be range of motion as tolerated . He will continue his antibiotics and we will plan for discharge either tomorrow or the day after when the patient is feeling better. DVT prophylaxis will be Lovenox while on the floor and I will s ee the patient back within a week. [id number]/[facility] #: [id number]
--- NOTE | 2017-02-21 14:16 | DS ---
DISCHARGE SUMMARY: DATE OF ADMISSION: 02/10/17 DATE OF DISCHARGE: 02/13/17 CHIEF COMPLAINT: 1. Septic knee status post arthroscopic I and D. 2. History of DVT. DISCHARGE DIAGNOSES: 1. Status post right knee arthroscopic irrigation and debridement 02/12/17. 2. Status post right knee arthroscopy with debridement and lavage, 02/10/17. CONSULTATIONS: 1. Physical therapy. 2. Occupational therapy. 3. Infectious Disease. BRIEF HISTORY: The patient is a 51-year-old gentleman status post right knee arthroscopy with lysis of adhesions on 01/26/17 who developed a septic knee with aspiration showing 50,000 white blood antony ls and positive Staph aureus on PCR, who underwent arthroscopic irrigation with Dr. Grier. HOSPITAL COURSE: Mr. Ayala was admitted to [facility] on 02/10/17. The patient was see n postoperatively in the office by Dr. Grier where he was found to have a mild effusion with yellow fluid draining. This was aspirated and found to have 50,000 white blood cells positive. He was ad mitted to [facility] on 02/10/17 and underwent an arthroscopic evaluation with debridemen t and lavage on 02/11/[address] Monroy was consulted and the patient was started on v ancomycin with PCR cultures revealing Staph aureus and MRSA positive. He underwent a repeat arthrosc opy with irrigation and debridement on 02/12/[address] Grier. A PICC line was placed. His labs an d vital signs remained stable. He was able to bear weight as tolerated on the right lower extremity . His DVT prophylaxis was managed with Lovenox while inpatient. He was deemed orthopedically and m edically stable for discharge to go home with home services for intravenous antibiotic aid. PHYSICAL EXAMINATION: General: Well-appearing, in no acute distress. Alert and oriented, resting in bed comfortably. Right knee dressing in place with range of motion of 10 to 90 degrees. Sensati on to light touch grossly intact in bilateral lower extremities. Brisk cap refill. Right calf is s oft and nontender. Vital signs on the day of discharge, temperature 97.9, pulse 70, respirations 16 , blood pressure 130/78, pulse oxygenation 100% on room air. LABORATORY DATA: On the date of discharge; H and H of 13.7 and 41. Vancomycin trough is 12.8. DISCHARGE MEDICATIONS: 1. Colace 100 mg p.o. b.i.d. 2. Vancomycin 1250 mg IV q.[address] Monroy's orders. 3. Percocet 1 to 2 tablets every 3 hours as needed for pain. CONDITION ON DISCHARGE: Stable. DISCHARGE INSTRUCTIONS: Mr. Ayala is a pleasant 51-year-old gentleman status post arthroscopic ir rigation and debridement x2 for a septic right knee. He is orthopedically and medically stable for discharge to go home with home services. His labs and vital signs are stable. He will continue with Percocet as needed for pain control. He will follow up with Dr. Monroy within 1 week and will gonzales ve weekly CBC, CMP, CRP, vanc trough ordered and followed by Dr. Monroy. He will follow up with Mark Grier in approximately 7 to 10 days. He will take Percocet and Toradol as needed for pain. He will have visiting home nurse services for PICC line care and patient's management as well. Nae van was instructed to go immediately to the ER should he develop chest pain or shortness of breath and to call the office if he should develop increased redness, drainage, or increased pain in the knee. The patient voiced full understanding. JASMYN DIGGS [id number]/[facility] #: [id number]
== END 2017-02-13 16:45 | disposition home health service (06) | DRG 344 ==
LOC: OR 15:03 → SSU 21:30
PROVIDERS: ADMIT Orthopaedic Surgery; ATTEND Orthopaedic Surgery
PROC: 0S9C4ZZ Drainage of Right Knee Joint, Percutaneous Endoscopic Approach (ICD-10-PCS; principal; 2017-02-10 16:30)
PROC: 0S9C4ZZ Drainage of Right Knee Joint, Percutaneous Endoscopic Approach (ICD-10-PCS; 2017-02-12)
PROC: 02HV33Z Insertion of Infusion Device into Superior Vena Cava, Percutaneous Approach (ICD-10-PCS; 2017-02-12)
DX: M00.061 Staphylococcal arthritis, right knee (principal); B95.62 Methicillin resistant Staphylococcus aureus infection as the cause of diseases classified elsewhere; Z86.718 Personal history of other venous thrombosis and embolism; Z82.49 Family history of ischemic heart disease and other diseases of the circulatory system
CPT/HCPCS: 36415; 71010; 80048; 80202; 85014; 85018; 85025; 85652; 87070; 87073; 87102; 87116; 87205; 87206; 87640; 87641; 89051; 89060; A9270-GY; C1751; J1100; J1650; J1885; J2250; J2270; J2405; J2704; J3010; J3370

== ENCOUNTER 2017-02-16 10:02 | Emergency (ER) | payer BC ==
--- NOTE | 2017-02-16 10:44 | ED ---
Lower Extremity - HPI Summary HPI Summary: Patient underwent right knee surgical washout 5 days ago and was discharged home three days ago with a PICC line and home doses of Vancomycin TID. He has been compliant with medications and kept the wound clean and dry, but presents with concerns that the sutured portals are leaking yellow-red fluid and he is doing multiple dressing changes daily. He denies increased pain, redness, swelling or fevers. - History of Current Complaint Chief Complaint: EDExtremityLower Stated Complaint: RT KNEE/POSS INFECTION Time Seen by Provider: 02/16/17 10:13 Hx Obtained From: Patient, Family/Software Quality Test Engineer Mechanism Of Injury: Unknown Onset of Pain: Hours Onset/Duration: Still Present Severity Initially: Severe Severity Currently: Severe Pain Intensity: 8 Timing: Constant Location: Is Discrete @ - right knee Associated Signs And Symptoms: Positive: Swelling - mild and consistent. Negative: Knee Pain Aggravating Factor(s): Movement Alleviating Factor(s): Nothing Able to Bear Weight: Yes - Allergies/Home Medications Allergies/Adverse Reactions: Allergies Allergy/AdvReac Type Severity Reaction Status Date / Time No Known Allergies Allergy Verified 02/10/17 15:28 PMH/Surg Hx/FS Hx/Imm Hx Endocrine/Hematology History: Denies: Hx Diabetes, Hx Thyroid Disease Cardiovascular History: Reports: Hx Deep Vein Thrombosis - DVT in right leg Denies: Hx Hypercholesterolemia, Hx Hypertension, Hx Pacemaker/ICD, Hx Peripheral Vascular Disease, Other Cardiovascular Problems/Disorders Respiratory History: Reports: Hx Asthma - Hx OF, NO PROBLEMS IN MANY YEARS Denies: Hx Chronic Obstructive Pulmonary Disease (COPD), Other Respiratory Problems/Disorders GI History: Denies: Hx Ulcer, Other GI Disorders History: Denies: Hx Dialysis, Hx Renal Disease Musculoskeletal History: Reports: Hx Orthopedic Injury - screw left foot ( removed), meniscus tear, Other Musculoskeletal History - herniated cervical disc - healed on own Denies: Hx Arthritis, Hx Rheumatoid Arthritis, Hx Osteoporosis Sensory History: Reports: Hx Contacts or Glasses - glasses Denies: Hx Cataracts, Hx Glaucoma, Hx Hearing Aid Opthamlomology History: Reports: Hx Contacts or Glasses - glasses Denies: Hx Cataracts, Hx Glaucoma Neurological History: Reports: Other Neuro Impairments/Disorders - herniated discs in neck Denies: Hx Dementia, Hx Headaches, Hx Seizures, Hx Transient Ischemic Attacks (TIA) Psychiatric History: Denies: Hx Anxiety, Hx Depression, Hx Panic Disorder - Cancer History Hx Chemotherapy: No - Surgical History Surgery Procedure, Year, and Place: appy, 1984, rt knee scope, 2015, [facility] [place]. RIGHT FOOT SCREW 2000, REMOVED, 2004 OR 2005, Right knee meniscus repair and cartilage patch Hx Anesthesia Reactions: No Infectious Disease History: Yes Infectious Disease History: Reports: Hx of Known/Suspected MRSA Denies: Hx Clostridium Difficile, Hx Hepatitis, Hx Human Immunodeficiency Virus (HIV), Hx Shingles, Hx Tuberculosis, Hx Known/Suspected VRE, Hx Known/ Suspected VRSA, History Other Infectious Disease, Traveled Outside the [place] in Last 30 Days - Family History Known Family History: Positive: None Negative: Cardiac Disease, Hypertension, Diabetes - Social History Occupation: Employed Full-time Lives: With Family Alcohol Use: Occasionally Alcohol Amount: 2-3 DRINKS /MONTH Hx Substance Use: No Substance Use Type: Reports: None Hx Tobacco Use: No Smoking Status (MU): Never Smoked Tobacco Review of Systems Negative: Fever, Chills Positive: Edema - mild, Other - drainage All Other Systems Reviewed And Are Negative: Yes Physical Exam Triage Information Reviewed: Yes Vital Signs On Initial Exam: Initial Vitals Temp Pulse Resp BP Pulse Ox 97.6 F 81 18 134/86 96 02/16/17 10:03 02/16/17 10:03 02/16/17 10:03 02/16/17 10:03 02/16/17 10:03 Vital Signs Reviewed: Yes Appearance: Positive: Well-Appearing, No Pain Distress, Well-Nourished Skin: Positive: Warm, Skin Color Reflects Adequate Perfusion, Dry, Soft, Erythema @ - healing enduration around portal sites. Negative: Tender Head/Face: Positive: Normal Head/Face Inspection Eyes: Positive: EOMI, CLAY, Conjunctiva Clear ENT: Positive: Hearing grossly normal Respiratory/Lung Sounds: Positive: Breath Sounds Present Cardiovascular: Positive: RRR Musculoskeletal: Positive: Limited @ - flexion and extension limited at baseline and consistent today, Edema Right - consistent with post-surgical edema. Negative: Pain @ Neurological: Positive: Sensory/Motor Intact, Alert, Oriented to Person Place, Time, NV Bundle Intact Distally, Unable to Assess Gait Psychiatric: Positive: Affect/Mood Appropriate AVPU Assessment: Alert Diagnostics - Vital Signs Vital Signs Temp Pulse Resp BP Pulse Ox 02/16/17 10:08 98.3 F 81 16 134/86 96 06/26/17 10:03 97.6 F 81 18 134/86 96 - Laboratory Lab Statement: Any lab studies that have been ordered have been reviewed, and results considered in the medical decision making process. Lower Extremity Course/Dx - Diagnoses Differential Diagnosis/HQI/PQRI: Positive: Bursitis, Cellulitis, Contusion, Foreign Body, Infection, Septic Arthritis, Sprain, Strain Provider Diagnoses: right knee serosanguinous drainage Discharge - Discharge Plan Condition: Stable Disposition: HOME Patient Education Materials: [facility] (ED) Referrals: Elsa Willoughby MD [Primary Care Provider] - Lissa Grier MD [Medical Doctor] - Additional Instructions: Please continue with your post-surgical instructions and follow-up as schedules with Dr. Grier. Return to the emergency department if you develop a temperature of 100.4 or greater, have increase redness that spreads or have mucous-like drainage from the wound.
[2017-02-16 10:53] LABS: Hematocrit 40 % (42-52); Hemoglobin 13.7 g/dl (14.0-18.0); Mean Corpuscular HGB Conc 34 g/dl (31-36); Mean Corpuscular Hemoglobin 31 pg (27-31); Mean Corpuscular Volume 91 fL (80-94); Mean Platelet Volume 8 um3 (7.4-10.4); Red Blood Count 4.41 10^6/ul (4.0-5.4); Red Cell Distribution Width 12 % (10.5-15); White Blood Count 6.1 10^3/ul (3.5-10.8)
[2017-02-16 11:35] VITALS: BP 123/73
[2017-02-16 12:49] LABS: Erythrocyte Sed Rate 63 mm/Hr (0-20)
== END 2017-02-16 11:35 | disposition home or self-care (01) ==
LOC: ED 10:02
DX: T81.89XA Other complications of procedures, not elsewhere classified, initial encounter (principal); R60.9 Edema, unspecified; Z98.890 Other specified postprocedural states; Z86.718 Personal history of other venous thrombosis and embolism
CPT/HCPCS: 36415; 85025; 85652; 86140; 99281

== ENCOUNTER 2017-02-21 08:00 | Inpatient (IN) | payer BC ==
--- NOTE | 2017-02-20 15:03 | HP ---
PREOPERATIVE HISTORY AND PHYSICAL: DATE OF ADMISSION/SURGERY: 02/21/17 CHIEF COMPLAINT: Right knee. PROCEDURE: Right knee arthroscopic surgery wound revision. HISTORY OF PRESENT ILLNESS: Andres is a 51-year-old male who presents to the clinic for followup of his right knee postoperative intra-articular infection that was treated with 2 washouts. He has noticed increased drainage from the medial portal for the last couple of days. He states that he al so has some aching pain that is 3/10 on his knee. He has weaned off the crutches, he is able to wal k on the knee with a limp. He has decreased his use of Percocet, he continues to be on IV antibioti cs. The patient states he got a call from Dr. Monroy who may be changing his IV antibiotic soon. He states that he had frequent spewing discharge from the medial portal of the right knee. The reina unt of fluid has not decreased over the past couple of days. He reports no purulent discharge. The fluid is a serosanguineous type fluid. He is feeling well otherwise. He denies fever, chills. He denies chest pain or shortness of breath. He denies numbness or tingling. His medial portal is no t healing correctly, therefore, he agreed to undergo a right knee arthroscopic surgery wound revisio n with Dr. Grier on 02/21/17. PAST MEDICAL HISTORY: DVT x1. PAST SURGICAL HISTORY: Appendectomy, surgery on his right foot x2 in 2000 and then 2004, right knee scope done by Dr. White in August 2014 with a partial medial meniscectomy, the knee was scoped by Dr. Grier in May 2016. He had a previous open BioCartilage procedure with arthroscopy and he h ad a right knee lysis of adhesions with the right knee washout, status post infection. MEDICATIONS: 1. IV vancomycin. 2. Percocet 5/325 mg 1 to 2 tablets every 4 to 6 hours as needed for pain. ALLERGIES: No known drug allergies. FAMILY HISTORY: Positive for hypertension. SOCIAL HISTORY: He lives with his spouse. He is a teacher. He denies tobacco or alcohol use. He denies illicit drug use. REVIEW OF SYSTEMS: A 14-point review of systems was reviewed with the patient, positive for his cur rent complaint, otherwise negative. PHYSICAL EXAMINATION GENERAL: A well-developed, well-nourished 51-year-old male in no acute distress. Alert and oriented x3. Appropriate mood and affect. VITAL SIGNS: Height 69, weight 171. Pulse 83, respiratory rate 16, temperature 98.7. BMI 25.2. HEENT: Normocephalic, atraumatic. PERRLA. Throat clear. NECK: Supple. PULMONARY: Lungs are clear to auscultation bilaterally. No wheezing, rhonchi, or rales. CARDIO: Regular rate and rhythm. S1 and S2. No murmurs, gallops, or rubs. No edema. ABDOMEN: Positive bowel sounds, soft, nontender. MUSCULOSKELETAL: Right knee, the lateral portal has healed well, the medial portal has a small ____ __ proximally which is oozing serous drainage. There is no warmth or erythema. He does have a mode rate effusion, appropriate tenderness to palpation. Range of motion from 5 to 150 degrees, stable l igament. Calves soft and nontender. +2 dorsalis pedis pulse. Sensation is intact to light touch d istally. NEUROLOGIC: Alert and oriented x3. Cranial nerves grossly intact. Sensation is intact to light to uch. 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 PLAN: The patient is scheduled to undergo a right knee arthroscopic surgery wound revision with Dr. Grire on 02/21/17. He will return to the office next week postop for followup. Percocet will be used for postop pain management. JASMYN TELLO [id number]/[facility] #: [id number]
[~2017-02-21 08:00] MED LIST changes: -Buffered Lidocaine 0.9% SYRIN* 5 ML/SYR SYRINGE INTRADERM ONE; +Bupivacaine 0.25% EPI 200,000* 30 ML SDV ONE; +Bupivacaine 0.25% SDV* 30 ML ONE; +Dexamethasone IV* 4 MG/ML 1 ML (4 MG) ONE; -Famotidine IV* 10 MG/ML 2 ML (20 mg) IV ONE; +Ketorolac INJ* 30 MG/ML 1 ML VIAL ONE; +Midazolam* 1 MG/ML 2 ML VIAL (2 MG) ONE; +Ondansetron INJ* 2 MG/ML VIAL ONE; +Propofol* 10 MG/ML 20 ML BTL IV PUSH ONE; +fentaNYL* 50 MCG/ML 2 ML VIAL (100 MCG VIAL) ONE
[2017-02-21] MEDS ORDERED: DiMENhydriNATE IV* 50 MG/ML VIAL IV PUSH PRN (08:35)
[2017-02-21] MEDS ORDERED: fentaNYL* 50 MCG/ML 2 ML VIAL (100 MCG VIAL) ONE ×2 (09:09→09:30)
[2017-02-21] MEDS: fentaNYL* 50 MCG/ML 2 ML VIAL (100 MCG VIAL) IV PRN ×4 (09:11→10:02)
[2017-02-21] MEDS ORDERED: oxyCODONE/Acetamin 5/325 MG* TAB ONE (09:16)
[2017-02-21] MEDS ORDERED: HYDROmorphone* 1 MG/ML 1 ML SYR ONE ×2 (09:39→10:38)
[2017-02-21] MEDS: HYDROmorphone* 1 MG/ML 1 ML SYR IV PRN ×4 (09:42→11:27)
[2017-02-21] MEDS ORDERED: Ondansetron INJ* 2 MG/ML VIAL IV PRN (12:04)
[2017-02-21] MEDS ORDERED: diPHENhydraMINE IV* 50 MG/ML 1 ml VIAL (BENADRYL) IV PRN (12:04)
[2017-02-21] MEDS ORDERED: HYDROmorphone* 1 MG/ML 1 ML SYR IV SLOW PU PRN (12:19)
[2017-02-21] MEDS ORDERED: oxyCODONE TAB* 5 MG TAB PO PRN (12:21)
[2017-02-21] MEDS ORDERED: ceFAZolin 2 GM PREMIX(*) 2 GM/50 ML BAG IVPB SCH (13:00)
[2017-02-21] MEDS: oxyCODONE TAB* 5 MG TAB PO PRN ×3 (13:54→22:06)
[2017-02-21] MEDS: Acetaminophen TAB* 325 MG PO SCH ×2 (14:30→22:06)
[2017-02-21] MEDS: ceFAZolin 2 GM PREMIX(*) 2 GM/50 ML BAG IVPB SCH ×2 (14:44→22:11)
[2017-02-21] MEDS ORDERED: Ketorolac INJ* 15 MG/ML 1 ML VIAL IV PUSH PRN (17:00)
[2017-02-21] MEDS: Heparin VIAL(*) 5000 UNITS/ML VIAL (FIVE THOUSAND) SUBCUT SCH (22:10)
[2017-02-22] MEDS: ceFAZolin 2 GM PREMIX(*) 2 GM/50 ML BAG IVPB SCH (06:19)
[2017-02-22] MEDS: Acetaminophen TAB* 325 MG PO SCH (06:19)
[2017-02-22 08:43] VITALS: BP 121/74
--- NOTE | 2017-02-22 08:50 | PN ---
Progress Note - Progress Note Date of Service: 02/22/17 SOAP: Subjective: POD #1 Right knee I&D and wound revision. States that he is feeling much better today, comfortable for d/c home. Denies C/P, SOB or calf pain. Objective: Vitals: Temp Pulse Resp BP Pulse Ox 98.4 F 51 16 121/74 97 02/22/17 08:35 02/22/17 08:35 02/22/17 08:35 02/22/17 08:35 02/22/17 08:35 Gen: A&Ox3, NAD at rest in bed RLE: Dressing C/D/I, +f/e at ankle, MTPs, N/V intact Assessment: POD #1 Right knee I&D and wound revision Plan: D/C home today. Continue Percocet for pain F/u with Dr. Grier this week
[2017-02-22] MEDS: Heparin VIAL(*) 5000 UNITS/ML VIAL (FIVE THOUSAND) SUBCUT SCH (09:31)
--- NOTE | 2017-02-23 06:47 | DS ---
DISCHARGE SUMMARY: DATE OF ADMISSION: 02/21/17 DATE OF DISCHARGE: 02/22/17 ADMITTING DIAGNOSIS: Right knee fistula medial portal from previous surgery. DISCHARGE DIAGNOSIS: Right knee fistula medial portal, status post right knee arthroscopic surgery with wound revision. HISTORY OF PRESENT ILLNESS: Mr. Ayala is a 51-year-old gentleman who has been followed by Dr. Grier with a right knee postoperative intra-articular infection; this was treated with two separate washouts. He has had increased drainage from the medial portal over several days and some aching pain. He was found to have developed a fistula of the medial arthroscopic portal and agreed to undergo right knee arthroscopic surgery with wound revision. HOSPITAL COURSE: On 02/21/17, the patient was admitted to [facility] and underwent a successful right knee arthroscopic surgery with wound revision by Dr. Grier. He recovered in the post-anesthesia care unit; however , he had a significant amount of knee pain and was admitted to the short-stay surgical unit for pain control. He states that since admission yesterday after surgery his pain has improved significantly. He has been able to ambulate with crutches comfortably at this point. He feels as though he will be comfortable for discharge home on oral Percocet. He continues to be on IV antibiotics with a PICC line for his right knee infection, which he is comfortable continuing upon discharge. There are is significant laboratory data during his hospital course. The vital signs were stable throughout the hospital course. DISCHARGE MEDICATIONS: The patient will resume his home medications of: 1. Percocet 5/325 mg one to two tablets p.o. q. 4-6 hours p.r.n. pain. 2. Cefazolin 2 g syringe IV q. 8 hours via PICC line. 3. Docusate 100 mg p.o. b.i.d. DISCHARGE INSTRUCTIONS: The patient may be weightbearing as tolerated with crutches. He is to leave his dressing in place until postop day 3. He may then remove the dressing and shower normally at that point. He will apply a dry dressing over the incisions as needed. He is understanding not to submerge the wound in a bath tub, hot tub, or swimming pool. He will call the office with any questions or concerns. He will go directly to the emergency room with any chest pain, shortness of breath, calf pain or swelling, fever greater than 101.5. All of his questions were answered to his full satisfaction. He will follow up with Dr. Grier later this week. JASMYN Herron [id number]/[facility] #: [id number] AI
--- NOTE | 2017-02-24 01:34 | OP ---
DATE OF OPERATION: 02/21/17 - ROOM #334 DATE OF : 61 SURGEON: Lissa Grier MD RETAIL SERVICES PROFESSIONAL: Aleja Jacobson MD. An assistant paralegal was needed for the entirety of the case to help with positioning and to help make the decisions with regards to the management. ANESTHESIOLOGIST: Dr. Hayes. ANESTHESIA: General. 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 OPERATIVE PROCEDURE: Right knee arthroscopy with thorough lavage of the joint as well as medial portal scar revision with excision of the medial portal to a total of 3 cm and closure in layers. INDICATIONS: Andres Ayala is a 51-year-old male, who has had previous septic arthritis that was washed out twice. He was doing well, but had persistent drainage from the anteromedial portal. There was a small poke hole. At this point, it was decided that due to his copious amount of drainage and persistence, it was deemed a fistula. After extensive discussion of risks and benefits of operative versus nonoperative treatment, he has elected to proceed with operative lavage as well as a revision of the portal. Risks included but are not limited to bleeding, infection, damage to nerves, vessels, surrounding structures, wound nonhealing, persistent pain, need for further surgery, risk of anesthesia, risk of DVT. He has elected to proceed. COMPLICATION: None. ESTIMATED BLOOD LOSS: Minimal. TOURNIQUET TIME: 0 minutes. DESCRIPTION OF PROCEDURE: The patient was greeted in the preoperative area by the attending surgeon. Correct extremity was marked and consent was confirmed. The patient was brought back to the operating suite, where he was placed in supine position on the operating table. He underwent general anesthesia with LMA intubation after which, the right leg was examined. Range of motion was 0 to 130 degrees. There was a small poke hole in the anteromedial portal superiorly where there was serous drainage. There was mild to moderate effusion. Lateral post was positioned. A nonsterile tourniquet was placed proximally on the thigh. The right leg was prepped and draped in the usual sterile fashion beginning with chlorhexidine soap, scrub, and alcohol wipe and a final prep with ChloraPrep. After appropriate surgical pause, indicating side, site, procedure, administration of antibiotics, the previous sutures were removed. The lateral and medial portals were opened with an 11 blade and the scope was positioned in the joint. There was no obvious pus, but there was some fibrinous material. The joint was sterilely lavaged with 11.5 L with turbulent flow and the shaver was used to debride any kind of fibrinous tissue. With the remaining 500 cc, the portals were then lavaged as well. Medial portal was extended using 15 blade proximally and distally for a total length of about 3 cm. The different layers of the capsule and the fistula were then excised. Both the medial and the lateral portals were then carefully rasped and aggravated using a curette to allow for good bloody healing layers. At this point, layers were closed both in medial and lateral portal. Deep layers were closed with 2-0 Vicryl in an interrupted fashion with 1 subcu suture as well and then a final skin closure of 3-0 nylon. Sterile dressings were applied. The patient was awoken up from anesthesia and transferred to the PACU in stable condition. POSTOPERATIVE PLAN: He will be monitored in the PACU. If he is having excessive amounts of pain, we will admit him overnight. DVT prophylaxis was considered, but deferred as he has had a previous history. If he is admitted, he will be on heparin while in-house. We will discharge him on pain medication. He will continue his antibiotics. He will follow up with ID for his MSSA and I will see the patient back within a week. [id number]/[facility] #: [id number] AI
== END 2017-02-22 11:00 | disposition home or self-care (01) | DRG 313 ==
LOC: EDSTATUS 08:00 → SSU 12:04
PROVIDERS: ADMIT Physician Assistant; ATTEND Orthopaedic Surgery
PROC: 0SBC4ZZ Excision of Right Knee Joint, Percutaneous Endoscopic Approach (ICD-10-PCS; principal; 2017-02-21 08:00)
DX: M25.161 Fistula, right knee (principal); Z86.718 Personal history of other venous thrombosis and embolism; M00.9 Pyogenic arthritis, unspecified; Z79.2 Long term (current) use of antibiotics; Z79.899 Other long term (current) drug therapy; Z82.49 Family history of ischemic heart disease and other diseases of the circulatory system
CPT/HCPCS: 87070; 87073; 87205; 87640; 87641; A9270-GY; J0690; J1100; J1170; J1644; J1885; J2250; J2405; J2704; J3010

== ENCOUNTER 2019-04-06 05:29 | Day surgery (SDC) | payer BC ==
--- NOTE | 2019-03-28 07:36 | HP ---
PREOPERATIVE HISTORY AND PHYSICAL: DATE OF ADMISSION/SURGERY: 04/06/19 ATTENDING SURGEON: Dr. Lissa Grier.* (DICTATED BY JASMYN TELLO) PROCEDURE: Left knee arthroscopy with partial meniscectomy. CHIEF COMPLAINT: Left knee pain. HISTORY OF PRESENT ILLNESS: Andres is a 53-year-old male who presents to the clinic for left knee pain due to a meniscus tear. He has failed conservative measures and therefore agreed to undergo left knee arthroscopy with partial meniscectomy with Dr. Grier on 04/06/19. PAST MEDICAL HISTORY: DVT and right knee infection. PAST SURGICAL HISTORY: Appendectomy, surgery on his right foot x2, right knee scope performed by Dr. White in 2014, and then partial medial meniscectomy of the right knee by Dr. Grier in May with an open BioCartilage procedure, lysis of adhesions and 2 knee washouts for postoperative infection. The patient denies prior complications with anesthesia. MEDICATIONS: Diclofenac 75 mg 1 by mouth twice a day as needed for pain. ALLERGIES: No known drug allergies. FAMILY HISTORY: Hypertension. Denies a family history of DVT or PE. SOCIAL HISTORY: He lives with his spouse. He is a teacher. He denies tobacco or alcohol use. He denies illicit drug use. REVIEW OF SYSTEMS: A 14-point review of systems was reviewed with the patient. Positive for current complaint, otherwise negative. Denies fever, chills, chest pain, shortness of breath, history of bleeding disorder. He does have a positive history of DVT postoperatively. PHYSICAL EXAMINATION GENERAL: A 53-year-old well-developed, well-nourished male, in no acute distress. VITAL SIGNS: Height 69, weight 178, pulse 78, blood pressure 126/74, respiratory rate 18, BMI 26.3. HEENT: Normocephalic, atraumatic. PERRLA. Throat clear. NECK: Supple. PULMONARY: Lungs are clear to auscultation bilaterally. No wheezing, rhonchi, or rales. CARDIO: Regular rate and rhythm. S1, S2. No murmurs, gallops, or rubs. No edema. ABDOMEN: Positive bowel sounds. Soft, nontender. MUSCULOSKELETAL: Left lower extremity: Skin is intact. No warmth or erythema. Range of motion 0 to 130. Stable to varus and valgus stress. Tenderness over the medial joint line. Positive Renetta. Stable Samuel. Negative posterior drawer. Calf soft, nontender. +2 DP pulse. Sensation intact to light touch distally. DIAGNOSTIC STUDIES: MRI of the left knee revealed medial meniscus tear. IMPRESSION: Left knee medial meniscus tear. PLAN: The patient is scheduled to undergo left knee arthroscopy with partial meniscectomy with Dr. Grier on 04/06/19. He will follow up 10 to 14 days postop for followup and suture removal. Percocet will be used for postop pain management and Lovenox will be used postoperatively due to his history of DVT in the past. JASMYN TELLO [id number]/[facility] #: [id number] MTDD
[~2019-04-06 05:29] MED LIST changes: +Buffered Lidocaine 1% SYRIN* 1 ML/SYRINGE INTRADERM ONE; -Bupivacaine 0.25% EPI 200,000* 30 ML SDV ONE; -Bupivacaine 0.25% SDV* 30 ML ONE; -Dexamethasone IV* 4 MG/ML 1 ML (4 MG) ONE; -Ketorolac INJ* 30 MG/ML 1 ML VIAL ONE; -Midazolam* 1 MG/ML 2 ML VIAL (2 MG) ONE; -Ondansetron INJ* 2 MG/ML VIAL ONE; -Propofol* 10 MG/ML 20 ML BTL IV PUSH ONE; -fentaNYL* 50 MCG/ML 2 ML VIAL (100 MCG VIAL) ONE
[2019-04-06] MEDS ORDERED: ceFAZolin 2 GM in NS PREMIX(*) 2 GM/100 ML BAG IVPB ONE (05:58)
[2019-04-06] MEDS ORDERED: Famotidine IV* 10 MG/ML 2 ML (20 mg) ONE (05:58)
[2019-04-06] MEDS ORDERED: Lactated Ringers 1000 ML Bag* 1,000 ML IV SCH (06:00)
[2019-04-06] MEDS ORDERED: Famotidine IV* 10 MG/ML 2 ML (20 mg) IV ONE (06:00)
[2019-04-06] MEDS ORDERED: Dexamethasone IV* 4 MG/ML 1 ML (4 MG) ONE (07:06)
[2019-04-06] MEDS ORDERED: Propofol* 10 MG/ML 20 ML BTL ONE (07:06)
[2019-04-06] MEDS ORDERED: Ondansetron INJ* 2 MG/ML VIAL ONE (07:06)
[2019-04-06] MEDS ORDERED: Ketorolac INJ* 30 MG/ML 1 ML VIAL ONE (07:06)
[2019-04-06] MEDS ORDERED: Lidocaine 2% PF * 5 ML VIAL ONE (07:06)
[2019-04-06] MEDS ORDERED: Midazolam* 1 MG/ML 5 ML VIAL (5 MG) ONE (07:07)
[2019-04-06] MEDS ORDERED: KETAMINE HCL* 50 MG/ML 10 ML VIAL ONE (07:07)
[2019-04-06] MEDS ORDERED: fentaNYL* 50 MCG/ML 2 ML VIAL (100 MCG VIAL) ONE (07:07)
[2019-04-06] MEDS ORDERED: Lidocaine 1% w EPI 1:200,000* SDV 30 ML VIAL ONE (07:13)
[2019-04-06] MEDS ORDERED: Ropivacaine 0.2% * 2 MG/ML VIAL ONE (07:13)
[2019-04-06] MEDS ORDERED: Naloxone* 0.4 MG/ML 1 ML VIAL IV PRN (07:19)
[2019-04-06] MEDS ORDERED: fentaNYL* 50 MCG/ML 2 ML VIAL (100 MCG VIAL) IV PRN (07:19)
[2019-04-06] MEDS ORDERED: Ondansetron INJ* 2 MG/ML VIAL IV PRN (07:19)
[2019-04-06] MEDS ORDERED: EPHEDrine (Pressors)* 50 MG/ML VIAL ONE (07:41)
[2019-04-06] MEDS ORDERED: oxyCODONE/Acetamin 5/325 MG* TAB ONE (09:28)
[2019-04-06 09:29] VITALS: BP 134/76
--- NOTE | 2019-04-06 09:47 | OP ---
CC: PCP OPERATIVE REPORT: DATE OF OPERATION: 04/06/19 DATE OF : 61 SURGEON: Lissa Grier MD. AIRBRUSH ARTIST PHOTOGRAPHY: None available. ANESTHESIOLOGIST: Dr. Mosqueda. ANESTHESIA: General. PRE-OP DIAGNOSIS: Left knee medial meniscus tear. POST-OP DIAGNOSES: Left knee medial meniscus tear. OPERATIVE PROCEDURE: Left knee partial medial meniscectomy and synovectomy in anterior medial and la teral compartments, removal of plica. COMPLICATIONS: None. ESTIMATED BLOOD LOSS: Minimal. INDICATIONS: Andres Ayala is a 53-year-old male who presented with an acute knee injury. He tri ed to rehab it with physical therapy, antiinflammatories, ice, and heat. He had persistent pain. He failed conservative management. He elected to proceed with surgical treatment. Risks and benefits were discussed at length included, but not limited to, bleeding; infection; damage to nerves, vessels , surrounding structures; wound nonhealing; persistent pain; need for further surgery; scarring; stif fness; incomplete relief of symptoms; and risks of anesthesia. DESCRIPTION OF PROCEDURE: The patient was greeted in the preoperative area by the attending surgeon. Correct extremity was marked. Consent was confirmed. The patient was brought back to the operatin g suite. He was placed in the supine position on the operating table, then underwent general anesthe freddy and LMA intubation, after which he was properly positioned in the bed. An unsterile tourniquet w as placed high on the proximal thigh. The lateral post was positioned. Both legs were then prepped a nd draped in the usual sterile fashion beginning with chlorhexidine soap, scrub, and alcohol wipe and a final prep with ChloraPrep. After appropriate surgical pause indicating site, side, procedure, and administration of antibiotics, the knee was intra-articularly injected with 1% lidocaine with epi. The anterolateral portal was ma de sharply with an 11-blade. The scope was introduced into the joint. Joint was examined. The anter omedial portal was made in an outside-in fashion. Shaver was used to debride back the abundant thick synovitis that was present. There was a plica that was evident medially and laterally. These were removed, and hemostasis was obtained using electrocautery device. Patella had grade 0 to 1 changes. The trochlea had small areas of grade 2 and very small ridge of grade 3 changes, but no significant unstable flaps. Medial and lateral gutters were intact without any loose debris. The ACL and PCL wer e intact. The medial compartment was examined. There were grade 1 changes to the medial femoral con dyle, which had some small unstable flaps, which were debrided back. The medial plateau had grade 1 changes. The medial meniscus had an unstable parrot beak type tear that extends all the way to the p eriphery, almost like a radial split tear. This was debrided back using biters and antonio. It was debrided back till there were stable layers evident, and this was gently probed to make sure there wi ll be no further meniscal tearing. The lateral compartment was examined. There were grade 1 changes to the lateral femoral condyle, lateral plateau. Meniscus was intact. There was no obvious tearing . The knee was then thoroughly lavaged, removing any loose debris. The wounds were then copiously i rrigated with sterile saline. Hemostasis was obtained at all times. The wounds were irrigated. The portals were closed with 3-0 nylon. The knee was superficially and intra-articularly injected with 0 .25% ropivacaine. Sterile dressings were applied. A Cryo/Cuff was applied. He was awoken from [facility] and transferred to PACU in stable condition. POSTOPERATIVE PLAN: He will be weightbearing as tolerated. He will be discharged on pain medication s. DVT prophylaxis was considered as the patient has a previous history of DVT, so we will place him on 2 weeks of Lovenox. I will see the patient back in 10 to 14 days. [id number]/[facility] #: [id number]
== END 2019-04-06 10:00 | disposition home or self-care (01) ==
LOC: OR 05:29
PROVIDERS: ATTEND Orthopaedic Surgery
DX: S83.242A Other tear of medial meniscus, current injury, left knee, initial encounter (principal); M67.52 Plica syndrome, left knee; X58.XXXA Exposure to other specified factors, initial encounter; Y92.9 Unspecified place or not applicable; Z86.718 Personal history of other venous thrombosis and embolism
CPT/HCPCS: A9270-GY; J0690; J1100; J1885; J2001; J2250; J2405; J2704; J2795; J3010